=== PATIENT | female | born 1935 | race Two or more races ===

== ENCOUNTER 2020-06-30 21:29 | Inpatient (IN) | payer OTHER ==
[~2020-06-30] VITALS: Ht 165.1 cm; Wt 80.7 kg
--- NOTE | 2020-06-30 21:40 | NUR ---
PT CAME TO THE ER C/O LOWER ABD PAIN X 3 DAYS +NAUSEA AND GERD. PT AAOX4, RESPIRATIONS EVEN AND UNLABORED ON RA W/ NAD NOTED. PT CONNECTED TO THE MONITOR AND POX .
[2020-06-30 22:17] LABS: BASOPHILS # (AUTO) 0.2 /CMM (0.0-0.2); BASOPHILS % (AUTO) 2.2 % (0.0-2.0); EOSINOPHILS % (AUTO) 1.9 % (0.0-6.0); HEMATOCRIT 35 % (33-45); HEMOGLOBIN 11.2 g/dL (11.5-14.8); LYMPHOCYTES # (AUTO) 0.7 /CMM (0.8-4.8); LYMPHOCYTES % (AUTO) 9.5 % (20.0-44.0); MEAN CORPUSCULAR HGB CONC 32 g/dl (31.0-36.0); MEAN CORPUSCULAR VOLUME 86 fL (82-100); MONOCYTES # (AUTO) 0.7 /CMM (0.1-1.30); MONOCYTES % (AUTO) 9.7 % (2.0-12.0); NEUTROPHILS # (AUTO) 5.7 /CMM (1.8-8.9); NEUTROPHILS % (AUTO) 76.7 % (43.0-81.0); PLATELET COUNT (AUTO) 380 /CMM (150-450); WHITE BLOOD COUNT (AUTO) 7.5 K/uL (4.3-11.0)
[2020-06-30 22:33] LABS: ALANINE AMINOTRANSFERASE 14 U/L (12-78); ALBUMIN 3.5 g/dL (3.4-5.0); ALKALINE PHOSPHATASE 119 U/L (46-116); ASPARTATE AMINOTRANSFERASE 13 U/L (15-37); BILIRUBIN,DIRECT 0.1 mg/dL (0.0-0.2); BILIRUBIN,TOTAL 0.3 mg/dL (0.2-1.0); CALCIUM, SERUM 9.3 mg/dL (8.5-10.1); CARBON DIOXIDE 30 mmol/L (21-32); CHLORIDE 99 mmol/L (98-107); CREATININE 0.8 mg/dL (0.6-1.3); GLUCOSE 94 mg/dL (74-106); LIPASE 66 U/L (73-393); POTASSIUM 3.7 mmol/L (3.5-5.1); SODIUM SERUM 137 mmol/L (136-145); TOTAL PROTEIN, SERUM 7.2 g/dL (6.4-8.2); UREA NITROGEN, BLOOD 14 mg/dL (7-18)
[2020-06-30] MEDS ORDERED: diphenhydrAMINE HCL 50 MG/ML VIAL IV ONE (23:00)
[2020-06-30] MEDS ORDERED: METOCLOPRAMIDE HCL 10 MG/2 ML VIAL IV ONE (23:00)
[2020-06-30] MEDS ORDERED: IOHEXOL-300 100 ML VIAL IV ONE (23:08)
[2020-06-30] MEDS ORDERED: IV NS 0.9% 250 ML IV ONE (23:08)
--- NOTE | 2020-06-30 23:14 | NUR ---
PT TAKEN TO RADIOLOGY FOR CT
--- NOTE | 2020-06-30 23:14 | NUR ---
URINE COLLECTED AND SENT TO LAB
--- NOTE | 2020-06-30 23:26 | NUR ---
PT BACK FROM RADIOLOGY
--- NOTE | 2020-06-30 23:27 | NUR ---
Osmin hudson in [facility] - 07/01/20 at 0159 by FRANCISCO COVID SWAB COLLECTED AND SENT TO LAB
[2020-06-30] MEDS ORDERED: METOCLOPRAMIDE HCL 10 MG/2 ML VIAL ONE (23:28)
[2020-06-30] MEDS ORDERED: diphenhydrAMINE HCL 50 MG/ML VIAL ONE ×2 (23:28→23:53)
--- NOTE | 2020-06-30 23:50 | NUR ---
PT NOTED WHEEZING AND TACHYPNEIC. DR VANCE CALLED TO BEDSIDE. ORDERS RECEIVED.
[2020-06-30] MEDS ORDERED: IPRATROPIUM NEB FS 0.5 MG/2.5 ML AMPUL.NEB ONE (23:56)
[2020-06-30] MEDS ORDERED: ALBUTEROL FS 2.5 MG/3 ML VIAL.NEB ONE (23:56)
[2020-06-30 23:59] LABS: APPEARANCE,URINE CLEAR (CLEAR); BILIRUBIN,URINE NEGATIVE (NEGATIVE); BLOOD, URINE NEGATIVE Ery/uL (NEGATIVE); COLOR,URINE YELLOW (YELLOW); KETONES,URINE NEGATIVE (NEGATIVE); LEUKOCYTE ESTERASE ,URINE NEGATIVE (NEGATIVE); NITRITE, URINE NEGATIVE (NEGATIVE); PROTEIN,URINE NEGATIVE (NEGATIVE); UGLUCOSE NEGATIVE (NEGATIVE); UROBILINOGEN,URINE 0.2 EU/dL (0.2)
[2020-07-01] VITALS (29 sets, daily range): BP systolic 115–172; BP diastolic 50–97
[2020-07-01] MEDS ORDERED: EPINEPHRINE (1:1000) MDV 30 MG/30ML VIAL SUBCUT ONE
[2020-07-01] MEDS ORDERED: methylPREDNISolone SOD SUCC 125 MG/2ML VIAL IV ONE
[2020-07-01] MEDS ORDERED: diphenhydrAMINE HCL 50 MG/ML VIAL IV ONE
[2020-07-01] MEDS ORDERED: ALBUTEROL FS 2.5 MG/3 ML VIAL.NEB CONTNEB ONE
[2020-07-01] MEDS ORDERED: IPRATROPIUM NEB FS 0.5 MG/2.5 ML AMPUL.NEB NEB ONE
--- NOTE | 2020-07-01 00:01 | NUR ---
RT AT BEDSIDE
--- NOTE | 2020-07-01 00:11 | NUR ---
RT rt called for breathing tx. tx given for wheezing per md order. pt found on 4 lnc. pt is tachycardic, tachypnic, and saturation is 88%. will continue to monitor pt throughout duration of tx.
[2020-07-01] MEDS ORDERED: EPINEPHRINE (1:1000) 1 MG/ML AMPUL ONE (00:16)
[2020-07-01] MEDS ORDERED: methylPREDNISolone SOD SUCC 125 MG/2ML VIAL ONE (00:17)
[2020-07-01] MEDS ORDERED: FAMOTIDINE/PF INJ 20 MG/2 ML VIAL IV ONE ×2 (00:17)
[2020-07-01] MEDS ORDERED: Magnesium 1GM/D5W 100ML PREMIX 200 ML IV ONE (00:28)
--- NOTE | 2020-07-01 00:30 | NUR ---
MAGNESIUM 2GM GIVEN OVER 20 MINS AT 0030 PER MD VERBAL ORDER.
--- NOTE | 2020-07-01 00:42 | NUR ---
RT pt placed on bipap due to respiratory distress while on tx. pt tachypnic, tachycardic, and spo2 100%. bipap setting: rate 16 15/5 100%. pt complains of sob. per md, if pt does not tolerate bipap then pt will be intubated.
[2020-07-01] MEDS ORDERED: PROPOFOL 100 ML ONE ×2 (00:45→02:38)
--- NOTE | 2020-07-01 01:00 | NUR ---
NUGENT EPRP PAGED PER DR VANCE.
--- NOTE | 2020-07-01 01:20 | NUR ---
RT pt intubated due to respiratory distress while on bipap. pt intubated with ett size 7.0 at 23@lip. vent settings: AC 16 550 80% +5. bilateral chest rise and lung sounds. vent plugged in to red outlet. small, yellow, thin secretions suctioned via ett. ambu bag at hob. hob at 35%. abg within 1 hr post intubation. will continue to monitor.
[2020-07-01] MEDS: Magnesium 1GM/D5W 100ML PREMIX 100 ML IV SCH ×2 (01:21→02:30)
[2020-07-01 01:55] LABS: ABG BASE EXCESS -0.9 mmol/L; ABG OXYGEN SATURATION 98.1 % (92.0-98.5); ABG PCO2 41.7 mmHg (35.0-45.0); ABG PH 7.381 (7.350-7.450); ABG PO2 116.1 mmHg (75.0-100.0); AaDO2 410.5 mmHg; COHb 0.6 % (0.5-1.5); MetHb 0.5 % (0.0-1.5); SITE, ABG Right Radial; VENT MODE, BG AC 16 550 80% +5
--- NOTE | 2020-07-01 01:57 | NUR ---
XRAY AT BEDSIDE
[2020-07-01] MEDS ORDERED: ALBUTEROL FS 2.5 MG/0.5 ML VIAL.NEB NEB PRN (02:00)
[2020-07-01] MEDS ORDERED: ZOLPIDEM TARTRATE 5 MG TABLET PO PRN (02:00)
[2020-07-01] MEDS ORDERED: MAGNESIUM HYDROXIDE 30 ML UDC PO PRN (02:00)
[2020-07-01] MEDS ORDERED: ONDANSETRON HCL/PF 4 MG/2 ML VIAL IVP PRN (02:00)
[2020-07-01] MEDS ORDERED: MAG HYDROX/AL HYDROX/SIMETH 30 ML UDC PO PRN (02:00)
[2020-07-01] MEDS ORDERED: ACETAMINOPHEN 325 MG TABLET PO PRN (02:00)
[2020-07-01] MEDS ORDERED: Z GUARD REMEDY 2 OZ OINT TP PRN (02:00)
[2020-07-01] MEDS ORDERED: IPRATROPIUM NEB FS 0.5 MG/2.5 ML AMPUL.NEB NEB PRN (02:00)
[2020-07-01] MEDS ORDERED: PROPOFOL 100 ML IV ONE (02:37)
[2020-07-01] MEDS ORDERED: SUCCINYLCHOLINE CHLORIDE 20 MG/ML VIAL IV ONE (03:00)
[2020-07-01] MEDS ORDERED: PROPOFOL 200 MG/20 ML VIAL IV ONE (03:00)
[2020-07-01] MEDS ORDERED: ETOMIDATE 2 MG/ML VIAL IV ONE (03:00)
--- NOTE | 2020-07-01 03:05 | NUR ---
REPORT GIVEN TO RENE CALLAWAY FOR RANDY
--- NOTE | 2020-07-01 03:45 | NUR ---
WELDER FITTER APPRENTICE NOTES - ADMISSION RECEIVED PATIENT FROM ER VIA [facility]. PATIENT IS INTUBATED AND SEDATED ON DIPRIVAN DRIP, CURRENTLY INFUSING @ 100MCG/KG/MIN. ETT 7.0/22CM AT LIP LINE, WITH VENT SETTINGS: AC 16, TV 550, FIO2 80%, PEEP +5. PERIPHERAL IV SITES PATENT AND INTACT, FLUSHED WITH NS, FREE FROM ANY S/S OF INFILTRATION OR PHLEBITIS. SKIN ISSUES PHOTOGRAPHED AND DOCUMENTED PER PROTOCOL. PATIENT ADMITTED TO ICU WITH DIAGNOSES: RESPIRATORY FAILURE, POSSIBLE ALLERGIC REACTION (TO IV CONTRAST PER ER REPORT). WILL MONITOR CLOSELY
--- NOTE | 2020-07-01 03:49 | NUR ---
RT pt transported to floor with no complications. ambu bag at [facility]. vent plugged in to red outlet. will continue to monitor.
--- NOTE | 2020-07-01 03:56 | NUR ---
[facility] BOARD AND CARE
--- NOTE | 2020-07-01 03:58 | NUR ---
PT TRANSFERRED TO ROOM VIA ACLS PROTOCOL
[2020-07-01] MEDS: IV D5/0.45 NACL 1,000 ML IV PRN ×2 (04:08→04:12)
[2020-07-01] MEDS: PROPOFOL 100 ML IV PRN ×10 (04:09→23:05)
[2020-07-01 05:24] LABS: ABG BASE EXCESS 2.7 mmol/L; ABG PCO2 37.6 mmHg (35.0-45.0); ABG PH 7.465 (7.350-7.450); ABG PO2 149.6 mmHg (75.0-100.0); AaDO2 381.3 mmHg; COHb 0.3 % (0.5-1.5); MetHb 0.2 % (0.0-1.5); O2Hb 98.5 % (94.0-97.0); SITE, ABG Right Radial; VENT MODE, BG AC 16 550 80% +5
--- NOTE | 2020-07-01 05:30 | NUR ---
DOCTOR OF NURSE ANESTHESIA NOTES FIO2 TITRATED TO 50% BY RT LOWE, PATIENT TOLERATED TITRATION WELL SO FAR. WILL MONITOR CLOSELY
[2020-07-01] MEDS: methylPREDNISolone SOD SUCC 40 MG/ML VIAL IV SCH ×3 (05:37→17:15)
[2020-07-01] MEDS ORDERED: VANCOMYCIN 1 GM in IV D5W 250 ML IV ONE (07:30)
--- NOTE | 2020-07-01 07:50 | NUR ---
ICU/RN PT IS INTUBATED ON THE VENT AC MODE.FIO2-40%,SAT O2-98%.V/S STABLE ,AFEBRILE.NO PAIN REPORTED AT THIS TIME.SEDATED ON PROPOFOL.RIGHT NG TUBE CLAMPED.LEFT ARM SWOLLEN.F/C DRAINING WITH YELLOW URINE.REDNESS ON RENEE AREA AND ABDOMINAL FOLDS NOTED,AND ON THE LOWER BACK.BILATERAL LOWER LEGS CELLULITIS .SUCTION PROVIDED.REPOSITION FOR COMFORT.
[2020-07-01] MEDS ORDERED: PIPERACILLIN /TAZOBACTAM 3.375 G in IV D5W 50 ML IV ONE (08:00)
[2020-07-01] MEDS: FAMOTIDINE/PF INJ 20 MG/2 ML VIAL IV SCH ×2 (08:07→20:29)
[2020-07-01] MEDS ORDERED: FURO-144 PO (08:14)
[2020-07-01] MEDS ORDERED: ACET-2605 PO (08:14)
[2020-07-01] MEDS ORDERED: AMLO5TAB4 PO (08:14)
[2020-07-01] MEDS ORDERED: PANT40TA2 PO (08:14)
[2020-07-01] MEDS ORDERED: CICL6.1H2 IH (08:14)
[2020-07-01] MEDS ORDERED: ONDA4TAB5 PO (08:14)
[2020-07-01] MEDS ORDERED: TRAZ-182 PO (08:14)
[2020-07-01] MEDS ORDERED: ATOR40TA PO (08:14)
[2020-07-01] MEDS ORDERED: CALC3.7S NS (08:14)
[2020-07-01] MEDS ORDERED: DICL100G16 TP (08:14)
[2020-07-01] MEDS ORDERED: LEVO100T9 PO (08:14)
[2020-07-01] MEDS ORDERED: DULO30CA2 PO (08:14)
[2020-07-01] MEDS ORDERED: LISI40TA4 PO (08:14)
[2020-07-01] MEDS ORDERED: CHOL100040 PO (08:14)
[2020-07-01] MEDS ORDERED: SUCR1TAB31 PO (08:14)
[2020-07-01] MEDS ORDERED: ALBU18HF2 IH (08:14)
[2020-07-01] MEDS ORDERED: HYDR-4077 PO (08:14)
[2020-07-01] MEDS ORDERED: MULT-447 PO (08:14)
[2020-07-01] MEDS ORDERED: HYDR-4354 PO (08:14)
[2020-07-01] MEDS ORDERED: NALO4SPR NS (08:14)
--- NOTE | 2020-07-01 08:46 | NUR ---
WOUND CARE CONSULT: PT PRESENTS INTUBATED WITH DISCOLORATION, REDNESS AND EDEMA TO LOWER LEGS, SACRAL INTACT DEEP TISSUE INJURY AND RASHES TO ABDOMINAL/GROIN FOLDS AND PERINEUM, PRESENT ON ADMISSION. RECOMMENDATIONS MADE FOR SKIN PROTECTION. DISCUSSED WITH NURSING STAFF. FIRST STEP LOW AIRLOSS MATTRESS IS ON ORDER. MD IN AGREEMENT WITH PLAN OF CARE. Addendum: 07/01/20 at 0853 by SHANTELLE REGALADO WNDNU Amended: Links added.
[2020-07-01] MEDS ORDERED: SUCCINYLCHOLINE CHLORIDE 20 MG/ML VIAL ONE (08:53)
[2020-07-01] MEDS ORDERED: FUROSEMIDE 40 MG/4 ML VIAL IV SCH (09:00)
--- NOTE | 2020-07-01 09:00 | NUR ---
ICU/RN DUE MEDS ARE GIVEN ORDERED. SEDATION VACATION PROVIDED.PT IS AWAKE ,FOLLOWS COMMAND.BILATERAL SOFT WRIST RESTRAINS ON.
[2020-07-01 09:07] LABS: BASOPHILS # (AUTO) 0.1 /CMM (0.0-0.2); BASOPHILS % (AUTO) 0.9 % (0.0-2.0); HEMATOCRIT 33 % (33-45); HEMOGLOBIN 10.4 g/dL (11.5-14.8); LYMPHOCYTES # (AUTO) 0.3 /CMM (0.8-4.8); LYMPHOCYTES % (AUTO) 2.4 % (20.0-44.0); MEAN CORPUSCULAR HGB CONC 32 g/dl (31.0-36.0); MEAN CORPUSCULAR VOLUME 87 fL (82-100); MONOCYTES # (AUTO) 0.1 /CMM (0.1-1.30); MONOCYTES % (AUTO) 1.2 % (2.0-12.0); NEUTROPHILS # (AUTO) 10.7 /CMM (1.8-8.9); NEUTROPHILS % (AUTO) 95.5 % (43.0-81.0); PLATELET COUNT (AUTO) 331 /CMM (150-450); RED BLOOD CELL COUNT(AUTO) 3.75 MIL/uL (4.0-5.2); WHITE BLOOD COUNT (AUTO) 11.2 K/uL (4.3-11.0)
[2020-07-01] MEDS: ENOXAPARIN SODIUM 40 MG/0.4 ML DISP.SYRIN SQ SCH (09:36)
[2020-07-01] MEDS: CLOTRIMAZOLE 1% 15 GM TUBE TP SCH ×2 (09:37→16:07)
[2020-07-01 09:57] LABS: ALBUMIN 3.2 g/dL (3.4-5.0); BILIRUBIN,TOTAL 0.3 mg/dL (0.2-1.0); CALCIUM, SERUM 8.7 mg/dL (8.5-10.1); CREATININE 0.8 mg/dL (0.6-1.3); MAGNESIUM 2.5 mg/dL (1.8-2.4); PHOSPHORUS 3.1 mg/dL (2.5-4.9); POTASSIUM 3.4 mmol/L (3.5-5.1); TOTAL PROTEIN, SERUM 6.4 g/dL (6.4-8.2)
[2020-07-01] MEDS: PIPERACILLIN /TAZOBACTAM 3.375 G in IV D5W 100 ML IV SCH ×2 (11:29→20:00)
[2020-07-01] MEDS: VANCOMYCIN 0.75 GM in IV D5W 250 ML IV SCH (17:12)
--- NOTE | 2020-07-01 18:01 | NUR ---
ICU/RN PM CARE PROVIDED.DUE MEDS ARE GIVEN ORDERED. REPOSITION FOR COMFORT.STILL INTUBATED ON THE VENT .AFEBRILE.NO PAIN REPORTED AT THIS TIME.
--- NOTE | 2020-07-01 19:30 | NUR ---
RN NOTES RECEIVED PATIENT IN BED INTUBATED, VENT SETTING TOLERATING WELL ORDERED. SEDATED AND ON PROPOFOL. NO S/S OF DISTRESS NOTED. RT NG TUBE CLAMPED. IV SITES LAC, RFA INTACT PATENT FLUSHES WELL. F/C INTACT URINE RUNNING TO GRAVITY. BILATERAL LOWER EXTREMITIES CELLULITIS. BILATERAL SOFT RESTRAINS IN PLACE FOR SAFETY RELEASED AND CHECKED FOR CIRCULATION AND PULSE. SAFETY MEASURES IN PLACE,CALL LIGHT WITHIN REACH. WILL CONT TO MONITOR FOR RANDY.
[2020-07-01] MEDS: HYDROCODONE/APAP 5/325MG TABLET PO PRN (21:15)
[2020-07-02] VITALS (22 sets, daily range): BP systolic 132–191; BP diastolic 68–106
[2020-07-02] MEDS: methylPREDNISolone SOD SUCC 40 MG/ML VIAL IV SCH ×4 (00:03→18:24)
[2020-07-02] MEDS: PROPOFOL 100 ML IV PRN ×7 (02:15→21:23)
[2020-07-02] MEDS: PIPERACILLIN /TAZOBACTAM 3.375 G in IV D5W 100 ML IV SCH ×3 (04:12→19:38)
[2020-07-02 04:48] LABS: BASOPHILS # (AUTO) 0.1 /CMM (0.0-0.2); BASOPHILS % (AUTO) 0.6 % (0.0-2.0); EOSINOPHILS % (AUTO) 0.1 % (0.0-6.0); HEMATOCRIT 33 % (33-45); HEMOGLOBIN 10.5 g/dL (11.5-14.8); LYMPHOCYTES # (AUTO) 0.4 /CMM (0.8-4.8); MEAN CORPUSCULAR HGB CONC 32 g/dl (31.0-36.0); MEAN CORPUSCULAR VOLUME 86 fL (82-100); MONOCYTES # (AUTO) 0.5 /CMM (0.1-1.30); MONOCYTES % (AUTO) 4.3 % (2.0-12.0); NEUTROPHILS # (AUTO) 11.5 /CMM (1.8-8.9); PLATELET COUNT (AUTO) 320 /CMM (150-450); RED BLOOD CELL COUNT(AUTO) 3.78 MIL/uL (4.0-5.2); WHITE BLOOD COUNT (AUTO) 12.5 K/uL (4.3-11.0)
[2020-07-02 05:09] LABS: CHOLESTEROL 168 mg/dL (<200); HDL CHOLESTEROL 64 mg/dL (40-60); LDL 88 mg/dL (0-99); TRIGLYCERIDES 98 mg/dL (30-150)
[2020-07-02 05:25] LABS: ALANINE AMINOTRANSFERASE 31 U/L (12-78); ALKALINE PHOSPHATASE 113 U/L (46-116); ASPARTATE AMINOTRANSFERASE 45 U/L (15-37); BILIRUBIN,TOTAL 0.2 mg/dL (0.2-1.0); CARBON DIOXIDE 28 mmol/L (21-32); CHLORIDE 103 mmol/L (98-107); CREATININE 0.9 mg/dL (0.6-1.3); GLUCOSE 124 mg/dL (74-106); MAGNESIUM 2.4 mg/dL (1.8-2.4); PHOSPHORUS 5.2 mg/dL (2.5-4.9); POTASSIUM 3.5 mmol/L (3.5-5.1); SODIUM SERUM 141 mmol/L (136-145); TOTAL PROTEIN, SERUM 6.3 g/dL (6.4-8.2); UREA NITROGEN, BLOOD 14 mg/dL (7-18)
[2020-07-02] MEDS: VANCOMYCIN 0.75 GM in IV D5W 250 ML IV SCH ×2 (06:01→18:26)
--- NOTE | 2020-07-02 07:29 | NUR ---
RN NOTES NO CHANGES NOTED DURING SHIFT. VENT SETTING TOLERATING WELL ORDERED. VITAL SIGNS WNL. NO S/S OF ACUTE DISTRESS NOTED. IV'S INTACT FLUSHES WELL. F/C INTACT YELLOW URINE RUNNING TO GRAVITY. ALL NEEDS ATTENDED, KEPT CLEAN DRY AND COMFORTABLE, SAFETY MEASURES IN PLACE, ENDORSE TO AM NURSE FOR RANDY.
[2020-07-02] MEDS: FAMOTIDINE/PF INJ 20 MG/2 ML VIAL IV SCH ×2 (09:02→20:08)
[2020-07-02] MEDS: ENOXAPARIN SODIUM 40 MG/0.4 ML DISP.SYRIN SQ SCH (09:04)
[2020-07-02] MEDS: CLOTRIMAZOLE 1% 15 GM TUBE TP SCH ×2 (09:04→18:27)
--- NOTE | 2020-07-02 10:00 | NUR ---
Sedation Vacation Notes Patient able to track+follow command upon titration of propofol.
[2020-07-02] MEDS ORDERED: SOD FERRIC GLUC 125 MG in IV NS 0.9% 100 ML IV SCH (14:00)
[2020-07-02] MEDS: HYDROCODONE/APAP 5/325MG TABLET PO PRN (15:17)
[2020-07-02] MEDS ORDERED: hydrALAZINE HCL IV 20 MG VIAL IV PRN (18:30)
--- NOTE | 2020-07-02 19:00 | NUR ---
MANAGER PAYMENT Patient remain attached to [facility] vent, FiO2 40%, SPO2 95%, RR 16, no SOB or distress. See sedation vacation notes - patient able to track+follow command. Tele ST HR 100-110s. L nare NGT clamped, NPO, 60@nose. Humphrey output 800mL this shift. Sacral redness, pictures taken, wound care done, turned per protocol. BLE swelling/cellulitis noted. L Arm swollen, endorsed to MANAGER PAYMENT @[facility]. bilat wrist restraints, no s/s impaired circulation. L AC 20G + R FA 20G intact, flushing well infusing propofol @80mcg/kg/min & TKO w/ abx. norco given x1 for pain. elevated BP+HR, hydralazine 10mg IV given x1 @1830. Son Jordan aware of transfer. Report given to Eric Reyes MANAGER PAYMENT @[facility] [employer]. Plan for neurosurgery consult + MRI spine rec endorsed.Transfer paperwork complete. Belongings checklist endorsed. Patient going to room 1113.
--- NOTE | 2020-07-02 19:30 | NUR ---
RN NOTE RECEIVED PT IN BED, SEDATED. PATIENT IN NO S/SX OF ACUTE DISTRESS AT THIS TIME. PATIENT'S BREATHING IS EVEN AND UNLABORED WITH EQUAL RISE OF THE CHEST. PATIENT ON ET TUBE CONNECTED TO MECHANICAL VENT WITH SETTINGS PRESCRIBED. PATIENT ON BEDSIDE MONITOR READING NSR, HR IS 96. NG TUBE INTACT, RESIDUAL AND PLACEMENT WAS CHECKED. NOTED IV SITE ON RFA G20 WITH DIPRIVAN AT 80 MCG/KG/MIN, AND LFA G20 WITH NS AT TKO, BOTH PATENT AND FLUSHING WELL, NO S/S OF INFECTION OR INFILTRATION. NOTED NON PITTING EDEMA OF LUE, AND BLE, ELEVATED ON PILLOWS TO FACILITATE MOVEMENT OF FLUID. PATIENT ON SOFT RESTRAINTS AT BILATERAL WRISTS, NO ISSUES NOTED WITH CIRCULATION. YEH CATH CONNECTED TO URINE BAG IN PLACE, DRAINING TO A CLEAR ABIGAIL URINE. SAFETY MEASURES IMPLEMENTED PER PROTOCOL. PATIENT BED ALARM IS ON. HEAD OF BED ELEVATED. BED IS LOCKED, IN LOWEST POSITION AND SIDE RAILS UP. CALL LIGHT WITHIN REACH OF THE PATIENT. WILL CONTINUE TO MONITOR AND REASSESS FOR ANY CHANGES.
--- NOTE | 2020-07-02 21:50 | NUR ---
RN NOTE PATIENT TRANSFERRED TO [facility] WITH STABLE VITAL SIGNS BP 138/72, HR 89, R16, SATURATING AT 97%, STILL SEDATED WITH DIPRIVAN AT 65 MCG/KG, NO ACUTE DISTRESS NOTED, BREATHING UNLABORED. REPORT GIVEN TO NUGENT BY WHITNEY RN, REPORT GIVEN TO CHIDI FRIED RN, VERBALIZED UNDERSTANDING. ALL BELONGINGS ACCOUNTED FOR, RECEIVED AND SIGNED BY CHIDI LÓPEZ, PICKED UP AND LEFT AT 2150 VIA AMBULANCE IN A GURNEY ACCOMPANIED BY 1 RN, AND 2 EMT PERSONNEL IN STABLE CONDITION. PATIENT'S SON MADE AWARE.
== END 2020-07-02 21:50 | disposition short-term general hospital (02) | DRG 915 ==
LOC: ER 21:30 → ICU 07-01 01:46
PROVIDERS: ADMIT Student in an Organized Health Care Education/Training Program
PROC: 5A1945Z Respiratory Ventilation, 24-96 Consecutive Hours (ICD-10-PCS; principal; 2020-07-01)
PROC: 0BH17EZ Insertion of Endotracheal Airway into Trachea, Via Natural or Artificial Opening (ICD-10-PCS; principal; 2020-07-01)
DX: T88.6XXA Anaphylactic reaction due to adverse effect of correct drug or medicament properly administered, initial encounter (principal); J96.00 Acute respiratory failure, unspecified whether with hypoxia or hypercapnia; J69.0 Pneumonitis due to inhalation of food and vomit; J90 Pleural effusion, not elsewhere classified; G95.20 Unspecified cord compression; J44.0 Chronic obstructive pulmonary disease with (acute) lower respiratory infection; R10.9 Unspecified abdominal pain; T50.8X5A Adverse effect of diagnostic agents, initial encounter; Y84.9 Medical procedure, unspecified as the cause of abnormal reaction of the patient, or of later complication, without mention of misadventure at the time of the procedure; Y92.89 Other specified places as the place of occurrence of the external cause; D64.9 Anemia, unspecified; I50.9 Heart failure, unspecified; G89.4 Chronic pain syndrome; Z66 Do not resuscitate; R11.0 Nausea; M48.56XD Collapsed vertebra, not elsewhere classified, lumbar region, subsequent encounter for fracture with routine healing; M48.00 Spinal stenosis, site unspecified; I70.0 Atherosclerosis of aorta; I51.7 Cardiomegaly
CPT/HCPCS: 31720; 36415; 36600; 71045-TC; 80048-TC; 80053-TC; 80061-TC; 80076-TC; 80202-TC; 81000-TC; 82728-TC; 82803-TC; 83540-TC; 83690-TC; 83735-TC; 84100-TC; 84484-TC; 85025-TC; 87040-TC; 87081-TC; 93307-TC; 94002-TC; 94003-TC; 94760-TC; 94799-TC; 99082-TC; C9803-CS; G0378; G0500; J0171; J0330; J0360; J1200; J1650; J1940; J2543; J2704; J2765; J2916; J2920; J2930; J3370; J3475; J3490; J7030; J7050; J7060; Q9967